=== PATIENT | female | born 1985 | race African-American/Black ===

== ENCOUNTER 2022-07-12 16:45 | Outpatient (CLI) | payer BC | END 2022-07-12 16:46 | disposition home or self-care (01) | LOC: CSHRAD 16:45 | PROVIDERS: ATTEND Student in an Organized Health Care Education/Training Program | DX: M54.2 Cervicalgia (principal); M54.6 Pain in thoracic spine; M54.50 Low back pain, unspecified; G89.29 Other chronic pain; M43.12 Spondylolisthesis, cervical region | CPT/HCPCS: 72040; 72072; 72100 ==